=== PATIENT | female | born 1945 | race Caucasian/White ===

== ENCOUNTER 2024-05-07 11:19 | Day surgery (SDC) | payer OTHER, SELFPAY ==
[2024-05-07] VITALS (7 sets, daily range): BP systolic 134–179; BP diastolic 69–114; BMI 35.0
--- NOTE | 2024-05-07 12:41 | ITS.CL.CATH ---
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
Cardiac Catheterization
Procedure Report:
CARDIAC CATHETERIZATION REPORT
Date of Procedure: 05/07/2024
Referring: Alexandr Person MD
Indication: Symptomatic severe aortic stenosis
HEMODYNAMIC DATA
AO: 144/67
LV: 188/20
There is a mean gradient of 42 mmHg across aortic valve
LEFT VENTRICULOGRAPHY: Not performed
CORONARY ANGIOGRAPHY
Dominance: Left
Left Main: Normal
LAD: Mild luminal irregularities
Circumflex: Dominant vessel with mild luminal irregularities
RCA: Nondominant vessel with mild luminal irregularities
Closure Device: None-the procedure was performed via the right radial artery. The Yehuda's test was normal prior to the procedure.
Radiation (mGy): 226
DAP (cm2.Gy): 17.6
Fluoroscopy time: 4.2 minutes
CONCLUSIONS
1: Severe aortic stenosis with mean gradient 42 mmHg
2: No significant CAD
3. Continue workup for TAVR
Copy to: Alexandr Person MD, Jean Claude Alonso DO ([place], [place])
Isrrael Rasmussen MD, [facility], [facility]
--- NOTE | 2024-05-07 15:28 | CONSULT.STRU ---
Consultation
-
Date/Time Consultation Requested: 05/07/2024
Date/Time Consultation Performed:
Requesting Provider: Isrrael Rasmussen
Performing Provider: MARI Bernstein
Reason for Consultation: Aortic Stenosis/ TAVR evaluation
Patient History
Physicians
Family Physician: Jean Claude Alonso
Outpatient Radar Engineering Teacher: Alexandr Person
Primary Radar Engineering Teacher: Alexandr Person
History of Present Illness
Patient is a very pleasant 78yo female referred for evaluation of . She has PAF(C2V: 4) with hx PVI 2020, repeat PVI 2021, multiple DCCV following that), HTN, dyslipidemia and progressive . She notes a clear deterioration over past yr in
exercise capacity with more noticeable MUHAMMAD over the past 6-8weeks.. She has both exertional fatigue and MUHAMMAD. Cannot walk up flight of stairs without significant dyspnea. No hx CAD. Her rhythm has been NSR so these sxs not due to AF. Compliant with
medications including Eliquis. She receives regular dental care.
Reviewed the pathophysiology of aortic stenosis with the patient, her and her daughter.. Explained the treatment options of SAVR and TAVR. Explained the TAVR evaluation process including follow up BMP, CT TAVR scan, CT surgery consult and
Heart Team discussion. Provided with script for BMP next week, script and appointment for CT TAVR, Consult appointment with Dr. Strange and a copy of the TAVR education booklet with contact information. Allowed for and answered questions.
Past Medical History
Past Medical History: Atrial Fib (C2V: 4, Eliquis), MUHAMMAD, GERD, HTN, Hypercholesterolemia, KRISHNA (CPAP), Renal Insufficiency, Valvular Disease (/mild AI/mild to mod. MR/mild TR) and Other (spinal stenosis)
Past Surgical History
Past Surgical History: Other (Cardiac ablation X 2, Cardioversion x 2)
Dental History
Dr. Coreas - regular dental care
Family History
Mother: at Age (96)
Father: at Age (89)
Family Medical History: Other (aortic stenosis)
Social History
Alcohol: Occasional
Drug: None
Tobacco: Non-Smoker
Personal:
Living: With Spouse
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
Allergies
Allergy/AdvReac Type Severity Reaction Status Date / Time
diltiazem [From Cardizem] Allergy Anaphylaxis Verified 05/07/24 12:17
tramadol Allergy Nausea / Verified 05/07/24 12:17
Vomiting
Home Medications
�Medication �Instructions �Recorded �Confirmed �Type
alpha lipoic acid 100 mg capsule 100 mg PO DAILY 05/07/24 05/07/24 History
amiodarone 200 mg tablet 200 mg PO DAILY 05/07/24 05/07/24 History
amlodipine 2.5 mg tablet 2.5 mg PO DAILY 05/07/24 05/07/24 History
apixaban 5 mg tablet 5 mg PO BID 05/07/24 05/07/24 History
ascorbic acid (vitamin C) 500 mg 500 mg PO DAILY 05/07/24 05/07/24 History
capsule,extended release (Vitamin
C)
calcium carb-ergocalciferol (vit 1 tab PO DAILY 05/07/24 05/07/24 History
D2) 600 mg calcium-200 unit tablet
chlorthalidone 25 mg tablet 12.5 mg PO DAILY 05/07/24 05/07/24 History
cholecalciferol (vitamin D3) 25 25 mcg PO DAILY 05/07/24 05/07/24 History
mcg (1,000 unit) tablet
coenzyme Q10 50 mg capsule 50 mg PO DAILY 05/07/24 05/07/24 History
duloxetine 60 mg capsule,delayed 120 mg PO DAILY 05/07/24 05/07/24 History
release
ezetimibe 10 mg tablet 10 mg PO DAILY 05/07/24 05/07/24 History
flaxseed oil 1,000 mg capsule 1,000 mg PO DAILY 05/07/24 05/07/24 History
mecobalamin (vitamin B12) 1,000 500 mcg PO DAILY 05/07/24 05/07/24 History
mcg chewable tablet (B12 Active)
metoprolol succinate 50 mg 50 mg PO BID 05/07/24 05/07/24 History
tablet,extended release 24 hr
multivit with min-folic 1 tab PO DAILY 05/07/24 05/07/24 History
acid-lutein 400 mcg-250 mcg
chewable tablet (Centrum Silver)
olmesartan 40 mg tablet 40 mg PO DAILY 05/07/24 05/07/24 History
omega-3 fatty acids 1,000 mg PO DAILY 05/07/24 05/07/24 History
omeprazole 40 mg capsule,delayed 40 mg PO BID 05/07/24 05/07/24 History
release
oregano oil 1,500 mg capsule 1,500 mg PO DAILY 05/07/24 05/07/24 History
potassium chloride 10 mEq 10 meq PO DAILY 05/07/24 05/07/24 History
capsule,extended release
rosuvastatin 20 mg tablet 20 mg PO QPM 05/07/24 05/07/24 History
turmeric root extract 500 mg 500 mg PO DAILY 05/07/24 05/07/24 History
capsule
vitamins A,C,V-hwvd-xjrwae 2,148 1 tab PO BID 05/07/24 05/07/24 History
mcg-113 mg-45 mg-17.4 mg tablet
(PreserVision AREDS)
STS%
STS %: 4.04%
Review of Systems
-
History Source: Patient
General: Reports Fatigue
HEENT: Reports No Symptoms
Respiratory: Reports MUHAMMAD (over past 6 - 8 weeks has progressed)
Cardiac: Reports Edema (bilateral lower extremities, Left>Right); Denies Chest Pain or Palpitations
Abdomen/GI: Reports Reflux; Denies Abdominal Pain, Nausea or Vomiting
: Reports No Symptoms
Musculoskeletal: Reports Other (spinal stenosis)
Skin: Reports No Symptoms
Neurological: Reports No Symptoms
Vascular: Reports No Symptoms
Physical Exam
Vital Signs
Temp 97.7 F 05/07/24 11:58
Temp route: Oral 05/07/24 11:58
Pulse 60 05/07/24 14:47
Resp Rate 19 05/07/24 14:30
Blood pressure 149/69 05/07/24 14:30
Blood pressure extremity used: Left upper arm 05/07/24 13:10
Position: Lying 05/07/24 13:10
MAP (cuff-Estefani Monitor) 91 05/07/24 14:30
SaO2 94 05/07/24 14:47
Oxygen Mode of Delivery Room air 05/07/24 13:10
Can the patient verbally communicate their pain? Yes 05/07/24 13:10
Actual Weight 83.91 kg 05/07/24 11:58
Body Mass Index (BMI) 35.0 05/07/24 11:58
Labs
04/30/2024:
H/H: 12.8/40.9
WBC: 9.0
Platelets: [id number]
BUN/Creat: 28/1.19
GFR 46
Diagnostic Studies
Echocardiogram 04/15/2024:
CONCLUSIONS
Moderate left atrial enlargement.
Normal right and left ventricular systolic function.
Severe aortic stenosis, mild aortic insufficiency.
moderate elevation in the right ventricular systolic pressure
Indications:
Nonrheumatic aortic (valve) stenosis, Nonrheumatic aortic (valve)
insufficiency, Shortness of breath
Rhythm: Sinus
Portable Study:
Technical Quality: Fair
Contrast: None
BP: 120 / 80
PROCEDURE
A complete Transthoracic Echocardiogram was performed utilizing two-dimensional
evaluation with color flow and spectral Doppler analysis.
FINDINGS
Left Ventricle
Normal size and systolic function estimated ejection fraction 65-70%
Right Ventricle
Normal size and systolic function
Left Atrium
Moderately enlarged
Right Atrium
Normal size
Mitral Valve
Normal mitral valve mild mitral annular calcification mitral regurgitation not
well quantified grossly appears mild to moderate in degree this could
underestimate the degree of mitral regurgitation
Aortic Valve
Aorta valve thickened and restricted consistent with severe aortic stenosis
with a mean gradient of 46 normal his mercury mild aortic insufficiency
Tricuspid Valve
Normal tricuspid valve, mild tricuspid regurgitation moderate elevation right
ventricular systolic pressure at 65 mercury
Pulmonic Valve
Normal pulmonic valve mild pulmonic insufficiency
Pericardium\\Pleura
No pericardial effusion
Aorta
Normal aortic root size
Other Finding
Interatrial septum intact inferior vena cava normal size gradient 50%
respiratory variation
MEASUREMENTS (Male / Female) Normal Values
2D ECHO
LV Diastolic Diameter PLAX 3.8 cm 4.2 - 5.9 / 3.9 - 5.3 cm
LV Systolic Diameter PLAX 2.5 cm
IVS Diastolic Thickness 1.0 cm 0.6 - 1.0 / 0.6 - 0.9 cm
LVPW Diastolic Thickness 1.0 cm 0.6 - 1.0 / 0.6 - 0.9 cm
LV Relative Wall Thickness 0.5
RV Internal Dim ED PLAX 2.9 cm
LVOT Diameter 2.0 cm
M-MODE
Aortic Root Diameter MM 2.6 cm
LA Systolic Diameter MM 5.0 cm
LA Ao Ratio MM 1.9
DOPPLER
AV Peak Velocity 426.2 cm/s
AV Peak Gradient 72.7 mmHg
AV Mean Gradient 45.7 mmHg
AV Velocity Time Integral 100.9 cm
LVOT Peak Velocity 91.5 cm/s
LVOT Peak Gradient 3.3 mmHg
LVOT Velocity Time Integral 24.3 cm
LVOT Stroke Volume 77.4 cm3
LVOT Stroke Volume Index 40.0 ml/m2 empty
LVOT Cardiac Index 2118.5 cm3/min
AV Area Cont Eq vti 0.8 cm2
AV Area Cont Eq pk 0.7 cm2
Mitral E Point Velocity 97.2 cm/s
Mitral A Point Velocity 40.5 cm/s
Mitral E to A Ratio 2.4
TR Peak Velocity 392.6 cm/s
TR Peak Gradient 61.7 mmHg
Right Ventricular Systolic Press 64.7 mmHg
Cardiac Cath 05/07/2024
HEMODYNAMIC DATA
AO: 144/67
LV: 188/20
There is a mean gradient of 42 mmHg across aortic valve
LEFT VENTRICULOGRAPHY: Not performed
CORONARY ANGIOGRAPHY
Dominance: Left
Left Main: Normal
LAD: Mild luminal irregularities
Circumflex: Dominant vessel with mild luminal irregularities
RCA: Nondominant vessel with mild luminal irregularities
Closure Device: None-the procedure was performed via the right radial artery. The Yehuda's test was normal prior to the procedure.
Radiation (mGy): 226
DAP (cm2.Gy): 17.6
Fluoroscopy time: 4.2 minutes
CONCLUSIONS
1: Severe aortic stenosis with mean gradient 42 mmHg
2: No significant CAD
3. Continue workup for TAVR
Exam
General: Well Developed, Well Nourished, No Apparent Distress and Comfortable
HEENT: Normocephalic and Moist Mucous Membranes
Neck: Negative JVD
Respiratory: Clear; Negative Wheezes, Crackles or Rhonchi
Cardiac: S1/S2, Regular Rhythm and Murmur (Grade III/ systolic murmur)
GI: Soft, Non Tender, Non Distended and Normal Bowel Sounds
Rectal: Deferred by Provider
Skin: Warm and Dry
Neuro: AO x 3 and No Motor Deficits
Extremities: Lower Level Edema (+1 Left >Right) and Pulses (+2 DP/PT pulses bilaterally)
Psych: Calm
Assessment / Plan
-
Procedure Type:�Isolated AVR
PERIOPERATIVE OUTCOME ESTIMATE %
Operative Mortality 4.04%
Morbidity & Mortality 11.6%
Stroke 1.25%
Renal Failure 2.16%
Reoperation 2.82%
Prolonged Ventilation 7.91%
Deep Sternal Wound Infection 0.063%
Long Hospital Stay (>14 days) 6.44%
Short Hospital Stay (<6 days)* 26.3%
Severe Aortic stenosis:
��������������� Continue evaluation for TAVR
��������������� BMP 05/14/2024 at [facility]
��������������� CT TAVR scan 05/18/2024 at pending BMP, may need to split
��������������� CT surgery consult with Dr. Strange 05/18/2024
��������������� Heart team discussion at [facility]
Dental Clearance
Paroxysmal Atrial Fibrillation (C2V: 4)
Rate control - medications managed by cardiology
Eliquis - will need to hold prior to TAVR and can result following procedure.
Data Reviewed
-
EKG: Report Reviewed by me
Breakfast Manager: Report Reviewed by me and Discussed with Physician
Echo: Report Reviewed by me
Labs: Labs Reviewed by me
Old Records: Reviewed (Cardiology consult notes, echocardiogram, previous labs from [facility])
Total Time Spent with Patient (in minutes): 35
== END 2024-05-07 16:11 | disposition home or self-care (01) ==
LOC: CATH 11:19
PROVIDERS: ATTENDING PHYSICIAN Internal Medicine Cardiovascular Disease; FAMILY PHYSICIAN Family Medicine; OTHER PHYSICIAN Internal Medicine Cardiovascular Disease
DX: I08.0 Rheumatic disorders of both mitral and aortic valves (principal); R06.02 Shortness of breath; I48.0 Paroxysmal atrial fibrillation; I10 Essential (primary) hypertension; E78.00 Pure hypercholesterolemia, unspecified; K21.9 Gastro-esophageal reflux disease without esophagitis; G47.33 Obstructive sleep apnea (adult) (pediatric); Z79.01 Long term (current) use of anticoagulants
CPT/HCPCS: 93458; C1894; Q9967

== ENCOUNTER → 2024-05-18 10:18 | Outpatient (REF) | payer OTHER, SELFPAY | LOC: RAD 10:18 | PROVIDERS: ATTENDING PHYSICIAN Nurse Practitioner Adult Health; FAMILY PHYSICIAN Family Medicine | DX: I48.91 Unspecified atrial fibrillation (principal); I35.0 Nonrheumatic aortic (valve) stenosis | CPT/HCPCS: 75572; Q9967 ==

== ENCOUNTER → 2024-05-27 09:22 | Outpatient (REF) | payer OTHER, SELFPAY | LOC: RAD 09:22 | PROVIDERS: ATTENDING PHYSICIAN Nurse Practitioner Adult Health; FAMILY PHYSICIAN Family Medicine | DX: I35.0 Nonrheumatic aortic (valve) stenosis (principal) | CPT/HCPCS: 74174; Q9967 ==

== ENCOUNTER 2024-06-17 07:29 | Inpatient (IN) | payer OTHER, SELFPAY ==
[2024-06-10 12:01] VITALS: BMI 35.1
[2024-06-10 12:28] LABS: % Basophils 0.5 % (0-2); % Eosinophils 0.5 % (0-6); % Immature Granulocytes 0.2 % (0-0.5); % Lymphocytes 19.6 % (20.5-51.1); % Monocytes 6.3 % (1.7-9.3); % Neutrophils 72.9 % (42.2-75.2); Absolute Lymphocytes 1.3 10^3/uL (1.2-3.4); Absolute Monocytes 0.4 10^3/uL (0.1-0.6); Absolute Neutrophils 4.7 10^3/uL (1.4-6.5); Hematocrit 34.9 % (37.0-47.0); Hemoglobin 12.1 g/dL (12.0-16.0); Mean Corp Hgb Conc. 34.7 g/dL (33.0-37.0); Mean Corpuscular Hgb 31.5 pg (27.0-31.0); Mean Corpuscular Volume 90.9 fL (81.0-99.0); Mean Platelet Volume 10.8 fL (7.4-10.4); Nucleated Red Blood Cells % 0 %; Platelet Count 192 10^3/uL (130-400); Red Blood Cell Count 3.84 10^6/uL (4.20-5.40); Red Cell Dist. Width 14.4 % (11.5-14.5); White Blood Cell Count 6.5 10^3/uL (4.8-10.8)
[2024-06-10 12:31] LABS: PT 17.2 Sec (11.4-14.6)
[2024-06-10 12:32] LABS: APTT 38.2 Sec (23.4-35.0)
[2024-06-10 12:41] LABS: NT-proBNP 608 pg/ml
[2024-06-10 12:54] LABS: ALT (SGPT) 29 U/L (0-35); AST (SGOT) 36 U/L (14-36); Albumin 4.5 g/dl (3.5-5.0); Alkaline Phosphatase 89 U/L (38-126); Blood Urea Nitrogen 24 mg/dl (7-17); Carbon Dioxide 22 mmol/L (22-30); Chloride 104 mmol/L (98-107); Direct Bilirubin 0.2 mg/dl (0.0-0.4); Estimated Creatinine Clearance 44 ml/min; Glucose 93 mg/dl (70-99); Potassium 3.9 mmol/L (3.5-5.1); Sodium 137 mmol/L (135-145); Total Bilirubin 0.9 mg/dl (0.2-1.3); Total Protein 6.9 g/dl (6.3-8.2)
[2024-06-10 13:34] LABS: Urine Albumin Negative (Neg - Trace); Urine Bilirubin Negative (Negative); Urine Character Clear (Clear); Urine Color Yellow; Urine Glucose Negative (Negative); Urine Ketone Negative (Negative); Urine Leukocyte Negative (Negative); Urine Nitrite Negative (Negative); Urine Occult Blood Negative (Negative); Urine Urobilinogen Negative (Neg - 1+)
[2024-06-10 14:36] LABS: Glycohemoglobin (HgbA1c) 5.3 % (4.0-5.6)
--- NOTE | 2024-06-10 16:26 | CM ---
spoke to pt in PAT's, we discussed preop teaching for TAVR. she is prev indep, lives with her husb in a 2 story home with 12 steps to enter. she has a walkr she uses if needed. she has the TAVR educ book, soap and instructions. her husb will be home
and is very supportive. plan is for TAVR 06/17, cm role explained and all questions answered.
[2024-06-17] VITALS (24 sets, daily range): BP systolic 84–188; BP diastolic 45–92; PULSE 42; BMI 34.5
--- NOTE | 2024-06-17 09:23 | CM ---
Addendum entered by PRETTY Garcia 06/17/24 09:24:
Correction to below:
CT Transitional Care RN is not available due to geographical area.
Original Note:
Patient in OR today for planned TAVR.
Reviewed initial assessment. Pt. resides w/ spouse in a private, 2 story home w/ 12 JUDY.
Functionally, patient is indep. w/ use of a RW.
Anticipated DC plan is for home w/ CT Transitional Care RN.
CM to follow.
[2024-06-17] MEDS: ANCEF 10 IV ×2 (10:35)
[2024-06-17 11:23] LABS: ACT-LR - POC 360 Seconds (116-155)
--- NOTE | 2024-06-17 11:49 | W.CVOR.SURPR ---
CVOR Surgeon Immed Pre Op
-
I have examined this patient prior to performance of the scheduled procedure.
The patient's condition is unchanged from the time of the dictated/written History and
Physical and the patient is able to undergo the scheduled procedure.
--- NOTE | 2024-06-17 11:49 | W.IMMPOSTOP ---
Surgical Immed Post Op Note
-
[id number]
STRUCTURAL HEART PROCEDURE NOTE: TAVR
Preoperative Dx:
Severe aortic stenosis (P/M: 72.7/45.7, JOSEPH 0.8, Pv 4.26)
Mitral regurgitation (gnqm-en-pctiuols)
AF
Bradycardia
HTN/HLD
GERD
KRISHNA - CPAP
Spinal stenosis
YUR[place] - hearing aids
Macular degeneration
Anxiety/depression
Postoperative Dx:
Same
Acute on chronic, combined systolic/diastolic congestive heart failure w/ elevated LVEDP 35mmHg
Procedures:
1) R GLOBAL POSITION SYSTEM TECHNICIAN access w/ tactile, U/S, fluoroscopic guidance, micropuncture technique, limited angiography, 8Fr dilator placement
2) Perclose placement x 2 into R GLOBAL POSITION SYSTEM TECHNICIAN, 8Fr sheath placement
3) L CFV access w/ U/S and fluoroscopic guidance, micropuncture technique, long 6Fr sheath placement
4) L GLOBAL POSITION SYSTEM TECHNICIAN access w/ tactile, U/S, fluoroscopic guidance, micropuncture technique, limited angiography, 6Fr sheath placement
5) Placement of pigtail catheter in NCC w/ limited aortography & confirmation of cusp-overlap view
6) Placement of temporary RV pacing wire w/ threshold testing
7) Placement of 14Fr COOK sheath into R GLOBAL POSITION SYSTEM TECHNICIAN
8) Wire purchase across stenotic AV (AL-1, soft-tip straight, table J-wire, pigtail catheter, LVEDP assessment [step 9], shannan)
9) Visual inspection of TAVR valve
10) R TF TAVR w/ placement of 26mm EVOLUT Fx, 1 partial recapture
11) Completion TTE (no AI/PVL, mean gradient 14mmHg)
12) Removal of phucg-egiaocop-rrkkmf w/ R GLOBAL POSITION SYSTEM TECHNICIAN mgmt w/ perclose sutures x 2; manual pressure
13) Completion R ileofemoral angiography
14) Removal of L GLOBAL POSITION SYSTEM TECHNICIAN sheath w/ mgmt w/ 6Fr angioseal; manual pressure
15) Removal of temporary pacing wire; L CFV sheath w/ manual pressure
Accounts Payable Accountant:
Dr. Xavier Kang
Cardiac Surgeon:
Dr. Anderson Strange
Implants:
Perclose x 2
6Fr angioseal x 1
Evolut Fx 26mm [id number]
Cath Data:
Start: 1052hrs, Deploy: 1126hrs, End: 1139hrs
FT: 9.5min, mGy: 512.90, DAP: 56.8339, Contrast: 77mL
Post-TTE: No AI/PVL, mean gradient 14mmHg
Complications:
None
Condition:
Stable/guarded to recovery
--- NOTE | 2024-06-17 12:04 | ITS.CL.TAVR ---
Astronomy Teacher - TAVR Report
TAVR PRocedure
Procedure Report:
TRANSCATHETER AORTIC VALVE REPLACEMENT REPORT
Date: 06/17/2024
Referring physician: Alexandr Person M.D.
Preop diagnosis: Severe aortic valve stenosis.
Postop diagnosis: Severe aortic valve stenosis, acute on chronic congestive heart failure.
Procedure: Transcatheter aortic valve replacement (TAVR) using a #26 Medtronic CoreValve Evolut Pro.
Operators: Xavier Kang DO, Anderson Strange M.D.
Findings: Severely calcified and stenotic aortic valve.
Anesthesia: Concious sedation was provided by the anesthesia staff.
Estimated blood loss: Negligable.
Complications: None.
Condition: Stable
Procedure:
The patient was brought to the cardiac cath lab manager after consent and was prepped and draped in standard sterile fashion. Conscious sedation was provided by the anesthesia staff. After a 'Time Out,' bilateral common femoral arteries and the left
common vein were access using a modified Seldinger technique with a micropuncture kit under ultrasound guidance. A 6 Syrian sheath was placed in the left femoral vein. Angiography performed through the micropuncture sheath confirmed satisfactory
arterial placement in the right and left common femoral arteries. The micropuncture sheath was replaced with a 6Fr sheath in the left common femoral artery. In the right common femoral artery, the micropuncture sheath was removed and an 8 Syrian
dilator was advanced over the wire. The dilator was removed and the right common femoral artery was preclosed with 2 Perc-Close devices. An 8 Syrian sheath was placed in the right common femoral artery. A temporary pacing wire was advanced through
the left femoral vein and into the right ventricle. The pacemaker demonstrated good capture and was set to back up. A 5Fr pigtail catheter was advanced through the left femoral sheath and seated in the non-coronary cusp. The valve overlap (LAKHANI 3,
CAU 17) and three cusp co-planar (STATELESS 17, CAU 21) angles were confirmed on aortography.
An AL-1 catheter was advanced through the 8Fr sheath, the J wire was exchanged for a Lunderquist wire and the catheter and the 8 Fr sheath was removed. A 14 Fr Cook sheath was placed. The CoreValve was prepared on the back table and then inspected
under fluoroscopy. Infolding of the valve was no higher than the 4th node. The AL-1 catheter was advanced over the Lunderquist wire, which was then removed. The catheter was flushed and a straight wire was advanced through the AL-1 catheter. The
straight wire was used to cross the valve, and the AL-1 catheter was prolapsed into the left ventricle. The straight wire was exchanged for an exchange length J-wire and the AL-1 catheter was subsequently exchanged for a 5 Fr pigtail catheter. The
double curve Lunderquist wire was advanced through the pigtail catheter and placed in the apex of the left ventricle. The pigtail catheter was removed.
The Cook sheath was removed and the in-line sheath was advanced over the Lunderquist wire through the RCFA into the descending aorta. The CoreValve was then advanced over the aortic arch and into the left ventricle. In the cusp overlap view, the
valve was slowly deployed to the point of flowering. The patient was rapidly paced in a de-escalating rate (from 140 bpm to 80 bpm) as the valve was deployed through the rumble strips to 80%. Our first appointment appeared to have restricted valve
expansion versus possible valve infolding. The valve was recaptured and redeployed in a more favorable position. Injection confirmed a non-coronary cusp implant depth of 3 mm. The image intensifier was taken to the 3 cusp overlap view to remove
paralax. Injection in this view confirmed left coronary cusp implant depth of 3 mm. The decision was made to proceed with full deployment. The delivery handle with slowly rotated counter clockwise until both paddles were released from the
superior aspect of the valve. The Lunderquist wire was partially withdrawn to lift the nosecone of the valve delivery device. The delivery device was withdrawn to the descending aorta and re-assembled. Transthoracic echocardiogram showed no
paravalvular insufficiency. Mean gradient across the valve was 14 mmHg by echo.
The inline sheath was removed over the Lunderquist wire and hemostasis was achieved using the two Perc-Close devices. Lower extremity angiography showed excellent hemostasis and good runoff without evidence perforation or extravasation. The
pigtail catheter was removed over a J-wire and the left CUSTODIAL ENGINEER was closed using a 6-Fr Angioseal. There was no evidence of consistent pacing requirement. The temporary pacer was removed. The venous sheath was removed. Manual pressure was applied
with good hemostasis of the left venous access. The patient was taken to recovery in good condition.
Implant Depth
Non-Coronary (mm): 3
Left Coronary (mm): 3
Radiation
Dose (mGy): 512.90
DAP (cm2.Gy): 56.8339
Fluoroscopy time (minutes): 9.5
TAVR Echo Gradient (mmHg): 14
LV (s/x, mmHg): 157/35
TAVR Cath Gradient (mmHg): Not obtained.
Conclusions:
1. Successful placement of #26 CoreValve Evolute Pro using a left percutaneous transfemoral approach with no acute complications.
2. Acute on chronic heart failure with elevated filling pressures (LVEDP = 35 at 83.9 kg).
Xavier Kang, DO, FACC, FACP
Copy: Anderson Strange M.D., Alexandr Person M.D., Jean Claude Alonso, D.O.
[2024-06-17] MEDS: LEVOPHED 250 IV (12:08)
--- NOTE | 2024-06-17 12:16 | W.PN.UPDATE ---
Update Note
Progress Note Update
Reviewed Ms. Mueller with the heart team in the preTAVR SDM and confirmed a 26 mm Evolut via right transfemoral access. She will resume Eliquis post TAVR. LVEDP 35mmHg. # 26 mm Evolut (serial# [id number]) successfully deployed via right Transfemoral
access. Post implant MG 14mmHg.
[2024-06-17] MEDS: LASIX 20 MG IV (12:33)
--- NOTE | 2024-06-17 14:15 | PTCARENOTE ---
Rec'd Pt 1338, post TAVR recovery, A,A+Ox3, denies pain, bilat femoral dsgs D+I. SB 40's BP 124/60. O2 sat 96%. RR 16.
[2024-06-17] MEDS: THERAGRAN 1 TABLET PO (16:42)
[2024-06-17] MEDS: CRESTOR 20 MG PO (17:09)
[2024-06-17] MEDS: ANCEF 5 IV (17:10)
--- NOTE | 2024-06-17 19:19 | PTCARENOTE ---
Pt. received from previous shift. Pt. seen in room, sitting up in chair with no complaints at this time. BP WNL. Tele reading sinus jasbir in the 40s-50s. Continuing to monitor the pt at this time.
[2024-06-17] MEDS: PROTONIX 40 MG PO (19:35)
[2024-06-17] MEDS: COLACE 100 MG PO (22:41)
[2024-06-18] VITALS (7 sets, daily range): BP systolic 118–151; BP diastolic 66–100; PULSE 56; O2SAT 94–96; BMI 34.5
--- NOTE | 2024-06-18 01:44 | PTCARENOTE ---
Frequent b/l groin site checks throughout the night, b/l groin sites soft and clean, dry and intact. Tele reading NSR with HR 50s-60s. No complaints at this time. Continuing to monitor the patient.
--- NOTE | 2024-06-18 02:19 | PTCARENOTE ---
RN noticed tele monitor HR in the 50s and then increasing to the 100s-110 and then decreasing back to the 50s. Tele strips printed and placed in pt. chart. CT Surgery PA notified. Pt. with no complaints at this time. B/L groin sites soft and c/d/i.
Continuing to monitor pt at this time.
[2024-06-18] MEDS: TYLENOL 650 MG PO ×2 (02:58→08:40)
--- NOTE | 2024-06-18 03:20 | W.PN.CT ---
Addendum entered and electronically signed by Anderson Strange MD 06/18/24 13:56:
I saw and examined the patient.
The PA's note was reviewed and I agree with the note.
Comment:
Postop day #1 status post right transfemoral TAVR with placement of 26 mm Evolut Fx valve
And out of atrial fibrillation without any significant conversion pauses or significant bradycardia. Heart rate in mid 50s at baseline.
Received diuresis for elevated LVEDP, amiodarone held for prolonged QT
Echocardiogram with hyperdynamic left ventricular function with LVEF of 70 to 75%. She has moderate but regurgitation. She has slightly elevated peak/mean aortic valve gradients at 47/25 mmHg without any identified AI/PVL she has mild to moderate
tricuspid regurgitation with severely elevated PASP with an estimated pulmonary toe pressure of 63 mmHg. Her TAVR gradients intra procedurally were 30/16 mmHg respectively
Outpatient rhythm monitoring
Discharge planning if okay with my cardiology colleagues
Original Note:
Today's Communication / Plan
-
-pod#1
-in and out of a-fib low 100s overnight (tachy/jasbir). No conversion pauses or significant bradycardia (mid 50s).Hr was 47 on preop ECG, takes 50 mg bid Toprol at home-->gave lower dose of Toprol 25 mg this am for tachy/htn
-LVEDP 35- diuresed with 20 iv Lasix (UO 800)
-long Qt >500 - held Amio
-labs pending
-R groin is a little tender with touch only, but appears soft, stable, without palpable hematoma or mass
-Echo today
-current meds (Crestor, Benicar, Zetia, Chlorthalidone, Norvasc, Eliquis). Toprol and Amio held postop d/t bradycardia
-encourage IS, OOB
Assessment / Plan
-
- Severe symptomatic - s/p R TF TAVR w/ placement of 26mm EVOLUT Fx, 1 partial recapture on 06/17/24, pod #1
- Acute on chronic, combined systolic/diastolic congestive heart failure w/ elevated LVEDP 35mmHg- diuresed with 20 iv Lasix (UO 800)
- Post-TTE: No AI/PVL, mean gradient 14mmHg
- Mitral regurgitation ([id number])
- Paroxysmal a-fib - on Amio, Toprol, and Eliquis at home
- Bradycardia
- HTN/HLD
- Class 1 obesity, BMI 34
- GERD
- KRISHNA - CPAP
- Spinal stenosis with chronic back pain
- BUCKLAND - hearing aids
- Macular degeneration
- Anxiety/depression
- Long Qt
Discussed patient care with: Nursing and Care Team
Subjective
Procedure
- s/p R TF TAVR w/ placement of 26mm EVOLUT Fx, 1 partial recapture on 06/17/24
-
Date of Service: June 18, 2024
Objective Data
-
PT 17.2 Sec (11.4-14.6) H 06/10/24 11:59
INR 1.40 06/10/24 11:59
APTT 38.2 Sec (23.4-35.0) H 06/10/24 11:59
Vital Signs
Vital Signs
Temp Pulse Resp BP Pulse Ox
98.7 F 58 18 151/67 96
06/18/24 02:59 06/18/24 02:45 06/18/24 02:59 06/18/24 02:30 06/17/24 23:03
CT Intake/Output/Weight
06/17/24 06/17/24 06/18/24
06:59 18:59 06:59
Intake Total 1400 / 1400
Output Total 800 / 800
Balance 600 / 600
SaO2: 96
Physical Exam
-
General: Awake and AOx3
Cardiovascular: Regular rate & rhythm and Murmur (1/6systolic @ lsb)
Respiratory: Clear and Decreased Breath Sounds
Incision: Other (groins are cdi, soft, no hematoma b/l. R groin slightly tender to touch - soft, without any palpable mass or hematoma)
Extremities: Edema +1 (chronic b/l edema, L>R per pt (had R TKR). 2+ DPs b/l)
Data Reviewed
-
Lab Results: Results Reviewed
Medications: Active Meds Reviewed
Chest X-Ray: Report Reviewed and Image Reviewed
ECG: Report Reviewed and Image Reviewed
[2024-06-18 03:46] LABS: Hemoglobin 12.2 g/dL (12.0-16.0); Mean Corp Hgb Conc. 34.9 g/dL (33.0-37.0); Mean Corpuscular Hgb 31.5 pg (27.0-31.0); Mean Corpuscular Volume 90.4 fL (81.0-99.0); Mean Platelet Volume 11.3 fL (7.4-10.4); Platelet Count 149 10^3/uL (130-400); Red Blood Cell Count 3.87 10^6/uL (4.20-5.40); Red Cell Dist. Width 14.4 % (11.5-14.5); White Blood Cell Count 9.6 10^3/uL (4.8-10.8)
[2024-06-18 03:54] LABS: Blood Urea Nitrogen 20 mg/dl (7-17); Calcium 9.7 mg/dl (8.4-10.2); Carbon Dioxide 26 mmol/L (22-30); Chloride 104 mmol/L (98-107); Estimated Creatinine Clearance 44 ml/min; Glucose 102 mg/dl (70-99); Potassium 3.6 mmol/L (3.5-5.1); Sodium 142 mmol/L (135-145)
[2024-06-18] MEDS: TOPROL XL 25 MG PO (04:55)
--- NOTE | 2024-06-18 04:59 | PTCARENOTE ---
Pt's HR in the 120s-130s. Tele reading AFib. BP taken 132/100. CT Surg PA notified, placed order for 25mg Metoprolol now. Med given. Continuing to monitor HR and patient.
--- NOTE | 2024-06-18 07:26 | W.PN.ANS.POP ---
Anesthesia Post Operative
- Anesthesia Post Op Note
Vital Signs Stable-See Nursing Note: Yes
Airway Patent: Yes
Adequate Pain Control: Yes (slight discomfort in the R groin, able to ambulate)
Change in Mental Status: No
Current Postoperative Nausea & Vomiting: No
Anesthesia Complications: No
General Anesthetic Recall: No
Unplanned Admission: No
Post Op Hydration Adequate: Yes
[2024-06-18] MEDS: KCL 40 MEQ PO (08:39)
[2024-06-18] MEDS: CYMBALTA DELAYED RELEASE 60 MG PO (08:39)
[2024-06-18] MEDS: PROTONIX 40 MG PO (08:39)
[2024-06-18] MEDS: THERAGRAN 1 TABLET PO (08:39)
[2024-06-18] MEDS: OCUVITE SOFTGEL 1 CAP PO (08:39)
[2024-06-18] MEDS: VITAMIN C 500 MG PO (08:39)
[2024-06-18] MEDS: BENICAR 40 MG PO (08:39)
[2024-06-18] MEDS: Hygroton 12.5 MG PO (08:39)
[2024-06-18] MEDS: ELIQUIS 5 MG PO (08:40)
[2024-06-18] MEDS: OSCAL 500 + D 500 MG PO (08:40)
[2024-06-18] MEDS: PACERONE 200 MG PO (08:40)
--- NOTE | 2024-06-18 08:45 | PTCARENOTE ---
pt received from previous RN, oriented, in bed. SB on the monitor, HR 50s. PROFILE SHAPER OPERATOR Dyan aware of PAF overnight. +1 ankle edema. pt denies n/v, +BS. c/o constipation, received PRN Colace. b/l groins c/d/i, no s/s of bleeding or hematoma. pt c/o R
groin tenderness, PROFILE SHAPER OPERATOR aware. PRN Tylenol given. PIV. see worklist for VS, I&O, and assessment.
[2024-06-18] MEDS: COLACE 100 MG PO (09:05)
[2024-06-18] MEDS: NORVASC 2.5 MG PO (09:06)
--- NOTE | 2024-06-18 09:48 | W.PN.CD ---
Today's Communication / Plan
-
Resume metoprolol.
Resume amiodarone.
Post procedure TTE pending.
RhythmStar
Discharge planning.
Impression / Plan
-
Impression/Plan: 79 y/o female with hypertension, hyperlipidemia, paroxysmal atrial fibrillation and sinus bradycardia and severe aortic valve stenosis admitted for elective TAVR.
#Severe aortic valve stenosis
-Chronic, progressive.
-S/P#26 Medtronic CoreVale via right common femoral approach (06/17/2024).
-Bilateral femoral access sites are C/D/I.
-EKG/Telemetry shows recurrence of atrial fibrillation and sinus jasbir.
-Antithrombotic therapy with apixaban 5 mg BID
-Post procedure TTE pending.
#Acute on Chronic HFpEF
-LVEDP = 35 mmHg during TAVR.
-Furosemide 20 mg given yesterday.
-GDMT as hemodynamics will tolerate.
-The patient may benefit from SGLT2i as an outpatient.
#HTN
-Chronic, stable.
-Resume home medications.
#HLD
-Chronic, stable.
-Resume rosuvastatin and ezetimibe.
#PAF
-Currently in AF with borderline controlled ventricular response (100) and sinus jasbir.
-Rate control with metoprolol and amiodarone. Unfortunately, these were held due to sinus jasbir and long QTc.
-CHADS2-Vasc = 5 (CHF, HTN, Age x2, Female).
-Therapeutic anticoagulation with apixaban 5 mg BID.
-Restart metoprolol as her sinus jasbir is not a new finding.
-Restart amiodarone. While amiodarone can increase QTc (as a type III antiarrhythmic), this is NOT associated with an increased risk of TdP.
-We will order a RhythmStar to better assess her AF/SB burden and adjust medications as needed.
#Dispo
-IVU status.
-Full code.
-Discharge planning.
Subjective/Interval History:
Overnight, the patient lapsed into AF with borderline control.
Metoprolol and amiodarone were held due to some bradycardia and prolonged QTc.
Currently back in NSR/Sinus jasbir.
DATA:
TAVR, 06/17/2024:
Conclusions:
1. Successful placement of #26 CoreValve Evolute Pro using a left percutaneous transfemoral approach with no acute complications.
2. Acute on chronic heart failure with elevated filling pressures (LVEDP = 35 at 83.9 kg).
Physical Exam
Vital Signs/Labs
Vital Signs
Temp Pulse Resp BP Pulse Ox
37.1 C 58 18 150/66 98
06/18/24 07:07 06/18/24 09:15 06/18/24 07:07 06/18/24 08:39 06/18/24 07:07
06/16/24 06/17/24 06/18/24
11:59 11:59 11:59
Actual Weight 84.141 kg 84.2 kg
06/18/24 02:52
06/18/24 02:52
PT 17.2 Sec (11.4-14.6) H 06/10/24 11:59
INR 1.40 06/10/24 11:59
APTT 38.2 Sec (23.4-35.0) H 06/10/24 11:59
06/10/24
11:59
Zih-Y-Ermsvzswpam Pept 608
Physical Exam
Constitutional: No acute distress and Comfortable
EENT: Anicteric and Moist mucous membranes
Cardiovascular: Rhythm & rate is regular, Pedal edema is absent, JVD pressure is normal, S1S2 is normal and Murmur/rub/gallop absent
Respiratory: Respiratory effort normal, Lungs clear to auscul., Wheeze Absent, Crackles Absent and Rhonchi Absent
GI: Soft, Distention absent, Flat, Non tender and Normal bowel sounds
Neuro/Psych: AO x 3
Other: Cath Site (Bilateral femoral access sites are C/D/I.)
Data Reviewed
-
Date of Service: June 18, 2024
Medical Decision Making: Reviewed Test Results, Independent Historian Assessment and Test Interpretation
EKG: Tracing Personally Visualized and interpreted and Report Reviewed by me
Echo: Tracing Personally Visualized and interpreted and Report Reviewed by me
X-Ray/CT/US/MRI/NUC/PET: Image Personally Visualized and interpreted and Report Reviewed by me
Medical Tests (PFT, Pathology etc): Image Personally Visualized and interpreted and Report Reviewed by me
Labs: Labs Reviewed by me
Old Records: Reviewed
--- NOTE | 2024-06-18 11:33 | W.DCSUMMARY ---
Discharge Summary
Discharge Data
Date of Admission: 06/17/24
Date of Discharge: 06/18/24
-
Pending Results: No
Hospital Course
Primary care physician: Jean Claude Alonso
Outpatient veneer lathe operator: Alexandr Person
Inpatient consultants: [facility]
Procedures:
1. TAVR
Primary Diagnosis:
1. Severe aortic stenosis
Secondary Diagnoses:
1. Acute on chronic, combined systolic/diastolic congestive heart failure with elevated left ventricular end diastolic pressure 35mmHg.
2. Mitral regurgitation ([id number]).
3. History of atrial fibrillation on Eliquis
4. Bradycardia
5. Hypertension
6. Hyperlipidemia
7. GERD
8. Obstructive sleep apnea - CPAP
9. Spinal stenosis
10. CRAIG - hearing aids
11. Macular degeneration
12. Anxiety/depression
13. Urinary frequency/incontinence
HPI: 79-year-old female was electively admitted on 06/17/2024 for elective TAVR due to severe aortic stenosis
Hospital course: Patient underwent right Trans-femoral TAVR #26mm EVOLUT Fx by Dr. Anderson Strange. Patient returned to PACU on Levophed which was quickly discontinued. Bilateral groin incisions were intact without bleeding. Patient received
Lasix 20 mg IV for an LVEDP of 35. Patient was noted to be bradycardic with rates in the 40s and beta-armando/amiodarone were held. Patient had intermittent atrial fibrillation with rate to the 100's without conversion pauses. On postoperative
day #1, amiodarone and beta-armando were resumed as prolonged QQc (522ms) is NOT associated with an increased risk of Torsades. A predischarge TTE on 06/18/2024 reported an EF of 70 to 75% with moderate mitral regurgitation. AV gradients were
47/25 mmHg (from 30/16mmHg post procedure) and no AI. There was mild to moderate TR. A prescription for Lasix 20 mg p.o. daily x 10 days was ordered. Patient will follow-up with Dr. Person in 30 days for follow-up echocardiogram. A Rhythm Star
monitor was ordered due to history of atrial fibrillation and current bradycardia. Echo findings were reviewed with Dr. Strange and patient is deemed stable for discharge to home.
Home medication changes:
Pantoprozole in place of omeprazole (on Eliquis, Crestor, Zetia)
Discharge Plan
-
Patient Disposition: Home (Routine Discharge)
Discharge Diagnosis/Procedures: TF TAVR
Condition: Good
Diet: Low Fat, Low Cholesterol and 2 Gram Sodium
Activity: As tolerated
Driving Restrictions: No driving for 1 week
Bathing Restrictions: OK to Shower
Others Tests: 30-day follow up echocardiogram: 07/20/2024 @ 12:[address] Person's office
Other Services: Cardiac Rehab
Wound Care: No lotions, powders or creams to puncture sites.
Specialty Instructions: Weigh Daily- Call MD for wt gain/loss 3 lbs overnight/5 lbs in 1 week
Referrals:
[facility] Visiting Nurse [Outside]
Jean Claude Alonso, [Family Provider] - in four to six weeks (Please make an appointment in four to six weeks. )
Eldaio Young MD [Active] - 07/26/24 3:40 pm
Prescriptions:
New
pantoprazole 40 mg Tablet,Delayed Release (/Ec)
40 mg PO BID Qty: 30 0RF
furosemide [Lasix] 20 mg tablet
20 mg PO DAILY Qty: 20 0RF
Continued
potassium chloride 10 mEq Capsule, Extended Release
10 meq PO DAILY
amiodarone 200 mg Tablet
200 mg PO DAILY
metoprolol succinate 50 mg Tablet Extended Release 24 Hr
50 mg PO BID
amlodipine 2.5 mg Tablet
2.5 mg PO DAILY
chlorthalidone 25 mg Tablet
12.5 mg PO DAILY
coenzyme Q10 50 mg Capsule
50 mg PO DAILY
flaxseed oil 1,000 mg Capsule
1,000 mg PO Q48H
Patient Comments:
ascorbic acid (vitamin C) [Vitamin C] 500 mg Capsule, Extended Release
500 mg PO DAILY
calcium carbonate-vitamin D2 600 mg calcium- 200 unit Tablet
1 tab PO DAILY
olmesartan 40 mg Tablet
40 mg PO DAILY
ezetimibe 10 mg Tablet
10 mg PO NOON
rosuvastatin 20 mg Tablet
20 mg PO QPM
duloxetine 60 mg Capsule,Delayed Release(Dr/Ec)
60 mg PO DAILY
cholecalciferol (vitamin D3) 25 mcg (1,000 unit) Tablet
25 mcg PO HS
alpha lipoic acid 100 mg Capsule
100 mg PO DAILY
oregano oil 1,500 mg Capsule
1,500 mg PO NOON
PreserVision AREDS 2,148 mcg-113 mg-45 mg-17.4mg Tablet
1 tab PO BID
turmeric root extract 500 mg Capsule
500 mg PO NOON
Centrum Silver 400-250 mcg Tablet,Chewable
1 tab PO BID
apixaban 5 mg Tablet
5 mg PO Q12H
mecobalamin (vitamin B12) [B12 Active] 1,000 mcg Tablet,Chewable
500 mcg PO NOON
omega 4-fgi-xoh-fish oil [Fish Oil] 1,000 mg (120 mg-180 mg) Capsule
1 cap PO Q48H
Discontinued
omeprazole 40 mg Capsule,Delayed Release(Dr/Ec)
40 mg PO BID
Discharge Orders:
Discharge Patient (As Directed); Ordered 06/18/24
Ordered By: Dyan Rokc
Care Plan Goals
Care Plan Goals:
Problem: Readiness for enhanced knowledge related to diagnosis and treatment plan
Goal: Understand your diagnosis and treatment plan needs, including medications if applicable.
Instructions: Know your diagnosis, underlying causes and treatment plan options, including medications if applicable. Consult with your health care team to learn about your diagnosis and treatment plan, including medications if applicable.
Discharge Date and Time
Print Language: LUXEMBOURGISH
--- NOTE | 2024-06-18 11:43 | CM ---
Reviewed chart. Met with and Mrs. Mueller to review discharge plans. She states she is feeling okay and maybe able to go home soon. She states prior to admission she resides with her spouse in a two story home with a basement. She states she
has twelve steps to get to the main level once inside the home. She states she then has twelve steps to get to bedroom/full bathroom. She states prior to admission she ambulates in the house without any device but uses a walker in the community.
She states she has a walker at home. She states she has a prescription plan. We reviewed VNA Services and she is agreeable to VNA with [facility]. Medical work-up in progress. The discharge plan is to return home with her spouse and [facility] when medically stable.
[2024-06-18] MEDS: ZETIA 10 MG PO (12:32)
[2024-06-18] MEDS: LASIX 40 MG PO (12:32)
--- NOTE | 2024-06-18 13:35 | PTCARENOTE ---
pt discharged home w/ family. discharge instructions reviewed w/ patient, questions answered. home meds reviewed. b/l groin dressings removed, sites TIANA, no s/s of bleeding or hematoma. IV and tele dc'd. Rhythm star monitor applied. pt dressed self.
== END 2024-06-18 14:16 | disposition home health service (06) | DRG 266 ==
LOC: IVU 07:29
PROVIDERS: Physician Assistant Medical; ADMITTING PHYSICIAN Thoracic Surgery (Cardiothoracic Vascular Surgery); CONSULT PHYSICIAN Internal Medicine Cardiovascular Disease; FAMILY PHYSICIAN Family Medicine
PROC: 02RF38Z Replacement of Aortic Valve with Zooplastic Tissue, Percutaneous Approach (ICD-10-PCS; 2024-06-17)
DX: I08.0 Rheumatic disorders of both mitral and aortic valves (principal); I50.43 Acute on chronic combined systolic (congestive) and diastolic (congestive) heart failure; I48.91 Unspecified atrial fibrillation; R00.1 Bradycardia, unspecified; I11.0 Hypertensive heart disease with heart failure; E78.5 Hyperlipidemia, unspecified; G47.33 Obstructive sleep apnea (adult) (pediatric); M48.00 Spinal stenosis, site unspecified; K21.9 Gastro-esophageal reflux disease without esophagitis; H35.30 Unspecified macular degeneration; H91.93 Unspecified hearing loss, bilateral; F32.A Depression, unspecified; F41.9 Anxiety disorder, unspecified; R35.0 Frequency of micturition; R32 Unspecified urinary incontinence; I48.0 Paroxysmal atrial fibrillation; E66.9 Obesity, unspecified; G89.29 Other chronic pain; Z68.34 Body mass index [BMI] 34.0-34.9, adult; Z79.01 Long term (current) use of anticoagulants; Z79.899 Other long term (current) drug therapy
CPT/HCPCS: 93308; 33361; 36415; 71045; 71046; 80048; 80053; 81003; 82248; 83036; 83880; 85025; 85027; 85347; 85610; 85730; 86850; 86900; 86901; 87070; 93005; 93306; 93321; 93325; C1760; C1769; C1894; Q9967

== ENCOUNTER → 2024-12-03 09:01 | Outpatient (REF) | payer OTHER, SELFPAY | LOC: RAD 09:01 | PROVIDERS: ATTENDING PHYSICIAN Student in an Organized Health Care Education/Training Program; FAMILY PHYSICIAN Family Medicine | DX: I35.0 Nonrheumatic aortic (valve) stenosis (principal) | CPT/HCPCS: 75572; Q9967 ==

== ENCOUNTER 2024-12-30 05:38 | Inpatient (IN) | payer OTHER, SELFPAY ==
[2024-12-22 13:03] LABS: % Basophils 0.3 % (0-2); % Eosinophils 0.4 % (0-6); % Immature Granulocytes 0.4 % (0-0.5); % Lymphocytes 14.6 % (20.5-51.1); % Monocytes 6.9 % (1.7-9.3); % Neutrophils 77.4 % (42.2-75.2); Absolute Lymphocytes 1.1 10^3/uL (1.2-3.4); Absolute Monocytes 0.5 10^3/uL (0.1-0.6); Absolute Neutrophils 5.6 10^3/uL (1.4-6.5); Hematocrit 35.3 % (37.0-47.0); Hemoglobin 11.8 g/dL (12.0-16.0); Mean Corp Hgb Conc. 33.4 g/dL (33.0-37.0); Mean Corpuscular Hgb 31.2 pg (27.0-31.0); Mean Corpuscular Volume 93.4 fL (81.0-99.0); Mean Platelet Volume 10.7 fL (7.4-10.4); Nucleated Red Blood Cells % 0 %; Platelet Count 164 10^3/uL (130-400); Red Blood Cell Count 3.78 10^6/uL (4.20-5.40); Red Cell Dist. Width 14.3 % (11.5-14.5); White Blood Cell Count 7.3 10^3/uL (4.8-10.8)
[2024-12-22 13:13] LABS: INR 1.31; PT 16.8 Sec (11.4-14.6)
[2024-12-22 13:14] LABS: APTT 34.2 Sec (23.4-35.0); Urine Albumin Negative (Neg - Trace); Urine Bilirubin Negative (Negative); Urine Character Clear (Clear); Urine Color Yellow; Urine Glucose Negative (Negative); Urine Ketone Negative (Negative); Urine Leukocyte Negative (Negative); Urine Nitrite Negative (Negative); Urine Occult Blood Negative (Negative); Urine Specific Gravity 1.015 (<1.030); Urine Urobilinogen Negative (Neg - 1+)
[2024-12-22 13:21] LABS: ALT (SGPT) 41 U/L (0-35); AST (SGOT) 36 U/L (14-36); Albumin 4.3 g/dl (3.5-5.0); Alkaline Phosphatase 72 U/L (38-126); Blood Urea Nitrogen 44 mg/dl (7-17); Calcium 10.5 mg/dl (8.4-10.2); Carbon Dioxide 24 mmol/L (22-30); Chloride 104 mmol/L (98-107); Direct Bilirubin 0.1 mg/dl (0.0-0.4); Glucose 93 mg/dl (70-99); Potassium 4.6 mmol/L (3.5-5.1); Sodium 137 mmol/L (135-145); Total Bilirubin 0.7 mg/dl (0.2-1.3); Total Protein 6.8 g/dl (6.3-8.2); eGFR 41.31
[2024-12-22 13:28] LABS: NT-proBNP 238 pg/ml
--- NOTE | 2024-12-22 14:00 | CM ---
Met with and Mrs. Mueller in [facility]. She states prior to admission she resides with her spouse in a three story home with thirteen steps to enter. She states she has to go up a full flight of steps to get to her bedroom/full bathroom. She
states she has a powder room in the basement. She states prior to admission she is independent with ambulation and adls. She states she does use a walker when ambulating long distances in the community. She states she has a walker and CPAP
Machine at home. She states she has a prescription plan with [facility] and uses mail order and [facility] when needed. She states he spouse will be home to assist in her care if needed when she goes home. The discharge plan is to return home
with her spouse and a home visit by the Transitional Care Nurse when medically stable.
We reviewed pre-op and post-op routines. We reviewed the shower instructions. She has the soap, written instructions and the TAVR Educational Booklet. We also reviewed restrictions including lifting and driving restrictions. We discussed a home
visit by the Transitional Care Nurse. She is agreeable to a home visit. The plan is for Balloon Valvulopasty and possible TAVR on December.
--- NOTE | 2024-12-22 14:01 | HPS.HSE ---
Family Physician
-
Family Physician: Jean Claude Alonso
Cardiology: Eladio Young
Chief Complaint
-
MUHAMMAD
Pre-procedure History and Physical
History of Present Illness
The patient is a 79-year-old female with a history of severe aortic stenosis treated with TAVR are 06/17/2024, no significant CAD at cath 05/07/2024, paroxysmal atrial fibrillation treated with PVI 2020, repeat PVI/Linq implantation 2021, recurrent
atrial fibrillation requiring multiple cardioversions/amiodarone, hypertension, hyperlipidemia, gastroesophageal reflux, spinal stenosis, and right total knee replacement 2020. She saw Dr. Young for follow-up and reported a change in her status
over the past month or so. She completed cardiac rehab, without events. She tells me she did well with rehab. Unfortunately, over the past several weeks or so she has noted a change in her status. She has been experiencing episodes of wooziness and
a draining sensation from her head. These episodes are happening multiple times per week. The episodes last about 3 to 5 seconds, gradually resolving over about a minute. These episodes can be brought on by a change in position. On a few occasions
she has had episodes seated. There has been no near-syncope or syncope. There has been no associated chest pain or palpitations. These episodes do not occur when she is supine.��In addition, the patient claims that over the past several weeks she
has been experiencing increased shortness of breath on the steps. She insists this was not a symptom that she had following TAVR are for the first 2 months. She actually states post TAVR she felt better but not great. There is no associated chest
pain,palpitations, PND or orthopnea. She does have bilateral lower extremity edema that is better in the morning after her legs are elevated all night.
Mrs. Mueller had a follow up echocardiogram on 11/24/2024 that showed change in AV MG from 13 in June to 20mmHg. Given her new symptoms a CT TAVR was ordered. Her studies were reviewed by the heart team. The valve appears to be underexpanded so
the plan is to perform BAV and if needed place a new valve. Explained the procedure to the patient and her . Allowed for and answered questions.
Medical History
Past Medical History
Past Medical History: Reports Arrhythmia (A-fib(Eliquis)), GERD, HTN, Hypercholesterolemia, Valvular Disease (Aortic stenosis, mild to moderate MR, mild TR), Psychiatric (Anxiety/depression) and Other (KRISHNA-CPAP, Spinal stenosis, constipation,
NEWTOK(hearing aids))
Past Surgical History: Reports Cardiac (TAVR 05/2024, Cardiac ablation 05/2021, cardioversions), Orthopedic (Right TKR) and Other
Social History
Tobacco: Non-smoker
Alcohol: Occasional
Drug: None
Personal:
Living: With Family
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
Family History
Family History: Not pertinent
Allergies / Home Medications
Allergies reflects when Allergies were last updated in [facility].
Home Medications with original date entered in [facility]
Allergy/Medication List:
Allergies:
Diltiazem- anaphylaxis
Tramadol - N/V
Medications:
Review of Systems
-
History Source: Patient
Constitutional: Denies Fever, Weight Gain or Fatigue
EENT: Reports No Symptoms
Respiratory: Reports Other (MUHAMMAD); Denies Cough or Trouble Breathing
Cardiac: Reports Palpitations (occasional); Denies Chest Pain or Syncope
Abdomen/GI: Reports No Symptoms; Denies Abdominal Pain, Nausea, Vomiting or Diarrhea
: Reports No Symptoms; Denies Dysuria, Frequency, Difficulty Voiding or Bleeding
Musculoskeletal: Reports No Symptoms and Edema (bilateral LE, better after elevation)
Skin: Reports No Symptoms
Neurological: Reports Dizzy (with position changes, no syncope, chronic problem) and Headache (tension)
Endocrine: Reports No Symptoms
Hematologic/Lymphatic: Reports No Symptoms
Psych: Reports Anxiety
Physical Exam
Physical Exam
General: Well Developed, Well Nourished, No Apparent Distress and Comfortable
HEENT: NormoCephalic, Atraumatic and PERRLA
Respiratory: Clear and Non Labored Respirations; No Wheezes, Rales or Rhonchi
Cardiac: S1/S2, Regular Rhythm, Murmur (Grade II/ systolic murmur) and Peripheral Edema (bilateral LE, Left >Right, +1 pitting)
Breast: Deferred by me
GI: Soft, Non Tender, Non Distended and Normal Bowel Sounds
Rectal: Deferred by Provider
Genito-urinary: Deferred by me
Musculoskeletal: Edema, Left Lower Extremity and Edema, Right Lower Extremity
Skin: Warm and Dry
Neuro: AO x 3, No Motor Deficits and Nonfocal/grossly intact
Psych: Anxious
Laboratory Results
-
12/22/24 12:29
12/22/24 12:
Laboratory Results
PT 16.8 Sec (11.4-14.6) H 12/22/24 12:
INR 1.31 12/22/24 12:
APTT 34.2 Sec (23.4-35.0) 12/22/24 12:
Total Bilirubin 0.7 mg/dl (0.2-1.3) 12/22/24 12:
AST 36 U/L (14-36) 12/22/24 12:
ALT 41 U/L (0-35) H 12/22/24 12:
Alkaline Phosphatase 72 U/L (38-126) 12/22/24 12:29
Data Reviewed
-
Diagnostic Radiology: Report Reviewed by me
CT Scan: Report Reviewed by me and Discussed with Physician
Medical Tests (Nuc Med, Echo, EKG etc): Report Reviewed by me
Lab Data: Labs Reviewed by me
Old Records: Reviewed (cardiology records, previous TAVR admission)
Impression/Plan
-
IMPRESSION:
Increased mean gradient of bioprosthetic aortic valve with new onset MUHAMMAD. Distortion of valve noted on CT scan.
PLAN:
-Admit 12/30/2024 with plan for BAV, possible placement of new TAVR valve
-Will hold eliquis, last dose 12/27/2024 and begin aspirin 324mg on 12/28, 81mg 12/29 and 12/30
-POD #1/#30 echocardiogram
-Cardiac rehab consult
-Resume Eliquis post procedure
[2024-12-22 14:18] LABS: Glycohemoglobin (HgbA1c) 5.5 % (4.0-5.6)
[2024-12-30] VITALS (38 sets, daily range): BP systolic 100–157; BP diastolic 55–88; BMI 35.6
--- NOTE | 2024-12-30 06:18 | PTCARENOTE ---
Pt arrived for TAVR procedure. pt prepped and clipped. CHG wipes used. new gown provided. IV placed. all admission questions answered. med rec completed. Consent signed by pt and Dr Strange. pt awaiting wetlands conservation laborer. call carlisle within reach.
[2024-12-30] MEDS: ANCEF 10 IV ×2 (07:15→07:43)
--- NOTE | 2024-12-30 08:17 | CM ---
Reviewed chart. Mrs. Mueller is in the operating room today. Prior to admission she resides with her spouse in a three story home with thirteen steps to enter. She has a full flight of steps to get to bedroom/full bathroom. She has a powder room on
the first floor. Prior to admission she was independent with ambulation and adls. She does uses a walker when ambulating long distances in the community. She has a walker and CPAP Machine at home. She has a prescription plan with [facility] and uses
mail order and [facility] when needed. Her spouse will be home to assist in her care if needed when she goes home. Medical work-up in progress. The discharge plan is to return home with her spouse and a home visit by the Transitional Care
Nurse when medically stable.
[2024-12-30 08:26] LABS: ACT-LR - POC 253 Seconds (116-155)
[2024-12-30 08:39] LABS: ACT-LR - POC 274 Seconds (116-155)
[2024-12-30 08:57] LABS: ACT-LR - POC 319 Seconds (116-155)
[2024-12-30 09:23] LABS: ACT-LR - POC 311 Seconds (116-155)
--- NOTE | 2024-12-30 09:36 | W.IMMPOSTOP ---
Surgical Immed Post Op Note
-
[id number]
STRUCTURAL HEART PROCEDURE NOTE: BAV s/p prior TAVR
Preoperative Dx:
Hx of severe s/p TAVR w/ 26mm EVOLUT Fx in MAY 2024 w/ new, symptomatic increase in valve gradients & imaging w/ infolding at valve inlet; mean gradient up to 20mmHg
Osek-dm-dhfpskhx MR w/ kucj-hp-hauyhszg MAC
Bradycardia
Hx of AF s/p ablation in 2020, cardioversions
KRISHNA - CPAP
HTN/HLD
GERD
Spinal stenosis
Macular degeneration
Anxiety/depression
Postoperative Dx:
Same
Procedures:
1) L RA access w/ tactile, U/S, and fluoroscopic guidance, micropuncture technique, 6Fr sheath placement
2) L CFV access w/ seldinger technique and U/S guidance, long 6Fr sheath placement
3) L WIRE MESH GATE ASSEMBLER access w/ tactile, U/S, and fluoroscopic guidance, seldinger technique, long 6Fr sheath placement
4) R WIRE MESH GATE ASSEMBLER access w/ tactile, U/S, and fluroscopic guidance, micropuncture technique, limited angiography, 6Fr/8F dilator placement, 8Fr sheath placement, perclose suture placement x 2
5) Placement of 14Fr Hernadez E-sheath (systemic heparinization)
6) Placement of pigtail catheter in ascending aorta via L RA access
7) Placement of temporary RV pacing wire via L CFV access w/ threshold testing
8) L coronary access for protection via L WIRE MESH GATE ASSEMBLER access (guide/undeployed stent)
9) Wire purchase across prior TAVR valve (table-J wire) w/ placement of pigtail catheter in LV apex
10) Hemodynamic assessments of TAVR valve (AV gradients measured on simultaneous measurements & on pull-back; mean gradient ~20mmHg)
11) Pre-BAV TTE assessment w/ mean gradient ~20mmHg
12) Placement of extra-stiff wire in LV apex
13) BAV x 2 w/ 22mm TRUE BALLOON good visual expansion of TAVR valve inlet
14) Completion aortography
15) Completion TTE assessment w/ mean gradient decrease to 10mmHg
16) Replacement of pigtail catheter in LV apex w/ repeat measurements of AV gradients w/ mean gradient decrease to ~10mmHg
17) Removal of L coronary protection w/ limited completion coronary angiography
18) Transition of pigtail catheter from L RA to L WIRE MESH GATE ASSEMBLER access
19) Removal of Hernadez E-sheath w/ R WIRE MESH GATE ASSEMBLER mgmt w/ perclose sutures x 2; manual pressure
20) Completion R ileofemoral angiography
21) Pacing wire secured in-situ secondary to ongoing sinus bradycardia in 40s
22) Limited L WIRE MESH GATE ASSEMBLER angiography w/ subsequent removal of L WIRE MESH GATE ASSEMBLER long 6Fr sheath w/ mgmt w/ 6Fr angioseal; manual pressure
23) Removal of L RA 6Fr sheath w/ mgmt w/ radial band placement
Charger:
Dr. Russ Casillas
Cardiac Surgeon:
Dr. Anderson Strange
Anesthesia:
MAC w/ local to B/L groins and L wrist
Complications:
None
Cath Data:
Start: 0747hrs, Deploy: N/A, End: 0931hrs
FT: 15.8min, mGy: 1000.35, DAP: 80.3115, Contrast: 90mL
Post-TTE: no AI/PVL, mean gradient 10mmHg
Implants:
Perclose x 2 to R WIRE MESH GATE ASSEMBLER
6Fr angioseal x 1 to L WIRE MESH GATE ASSEMBLER
Condition:
Stable/guarded to recovery
Temporary pacer in-situ; pt. w/ sinus bradycardia in 40s currently
--- NOTE | 2024-12-30 12:05 | PTCARENOTE ---
1135 Rec'd Pt s/p TAVR. She is sleeping but awakens easily and answers questions appropriately. She denies pain. Bilat femoral dsgs D+I L radial band in place, site clean and dry. L femoral venous pacer wire in place. Pt's HR 45, SB. BP 124/55. O2
sat 95% on O2 at 2L/min. Dyan Rock APPOINTMENT SCHEDULER came to see Pt.
--- NOTE | 2024-12-30 15:08 | PTCARENOTE ---
Zunilda ONTIVEROS & Mendoza Noble RN at bedside for LFV sheath pull. ACT 142
[2024-12-30 15:09] LABS: ACT-LR - POC 142 Seconds (116-155)
[2024-12-30] MEDS: REFRESH EYE DROPS (PF) 1 DROPS OPHTH ×3 (15:43→22:47)
[2024-12-30] MEDS: MAALOX 30 ML PO ×2 (15:46→19:54)
--- NOTE | 2024-12-30 16:04 | PTCARENOTE ---
Pt HR remaining in the 50's this afternoon, Dr Casillas removed venous pacer wire. laborer RN, Davon, removed venous sheath, with hemostasis at 1521. ACT prior to removal =142. L femoral dsg remains D+I.
--- NOTE | 2024-12-30 16:46 | PTCARENOTE ---
Pt c/o reflux/ indigestion. Med with Maalox 30ml PO, as ordered, with relief noted.
--- NOTE | 2024-12-30 16:56 | ITS.CL.PN ---
Addendum entered and electronically signed by Russ Casillas MD 12/30/24 17:49:
Limited coronary angiography performed to facilitate placement of coronary protection equipment demonstrated patent left dominant system with minimal coronary artery disease, unchanged from prior angiograph. Closing angiography after coronary
protection equipment was removed demonstrated no evidence of vessel injury.
Original Note:
Inner Tube Cutter - Procedure Note
Procedure
Procedure Note:
BALLOON AORTIC VALVULOPLASTY
Date of Procedure: 12/30/2024
Referring: Dr. Eladio Young MD
Indication: bioprosthetic valve failure due to TAVR prosthesis underexpansion and elevated gradient with symptomatic bioprosthetic aortic valve stenosis
Operators: Russ Casillas MD, PhD (interventional cardiology); Anderson Strange MD (CT surgery)
Anesthesia: conscious sedation provided by the anesthesia staff
PROCEDURE: balloon aortic valvuloplasty of a previously placed 26 mm Medtronic Evolut Fx TAVR valve with a 22 mm True balloon
ACCESS:
1. 6F left femoral vein (closure: manual hemostasis)
2. 6F left common femoral artery (closure: Angioseal)
3. 14F right common femoral artery (closure: Perclose x2)
4. 6F left radial artery
ULTRASOUND GUIDED VASCULAR ACCESS (left femoral vein): Ultrasound was utilized for vascular access. The vessel was visualized under ultrasound and noted to be patent. An image of the vessel was stored permanently in the patient's medical record.
Under direct ultrasound guidance, vascular access was obtained using a modified Seldinger technique and a 6 Cambodian sheath was placed.
ULTRASOUND GUIDED VASCULAR ACCESS (left common femoral artery): Ultrasound was utilized for vascular access. The vessel was visualized under ultrasound and noted to be patent. An image of the vessel was stored permanently in the patient's medical
record. Under direct ultrasound guidance, vascular access was obtained using a modified Seldinger technique and a 6 Cambodian sheath was placed.
ULTRASOUND GUIDED VASCULAR ACCESS (right common femoral artery): Ultrasound was utilized for vascular access. The vessel was visualized under ultrasound and noted to be patent. An image of the vessel was stored permanently in the patient's medical
record. Under direct ultrasound guidance, vascular access was obtained using a modified Seldinger technique and a 8 Cambodian sheath was placed.
ULTRASOUND GUIDED VASCULAR ACCESS (left radial artery): Ultrasound was utilized for vascular access. The vessel was visualized under ultrasound and noted to be patent. An image of the vessel was stored permanently in the patient's medical record.
Under direct ultrasound guidance, vascular access was obtained using a modified Seldinger technique and a 6 Cambodian sheath was placed.
HEMODYNAMIC DATA
LV 137/20 (EDP 30) mmHg
PROCEDURE NARRATIVE:
After heart team discussion decision was made to proceed with balloon aortic valvuloplasty of the previously placed Evolut TAVR valve with plan for bailout valve in valve TAVR with a EBONY S20 if BAV failed. Given high risk for coronary obstruction
with Larry TAVR based on CT analysis, upfront coronary protection of the left main was planned in case of need for Larry TAVR.
The patient was prepped and draped in standard sterile fashion. Conscious sedation was provided by the anesthesia staff. 6F left radial artery access was obtained under ultrasound guidance. 6F left femoral vein and left common femoral artery access
was obtained with ultrasound guidance using micropuncture technique with verification of appropriate arteriotomy location via hand injection angiography. A temporary venous pacing wire was advanced via the left femoral vein to the right ventricle
under fluoroscopic guidance with appropriate capture verified. A 5F pigtail catheter was advanced via the left radial artery and seated in the right coronary cusp. Angiography was performed to verify the co-planar angle.
8F right common femoral artery access was obtained with ultrasound guidance using micropuncture technique with verification of appropriate arteriotomy location via hand injection angiography. The arteriotomy was preclosed with two Perclose sutures
followed by replacement of the 8F sheath. Using an AL1 catheter, an Amplatz Superstiff wire was placed in the descending thoracic aorta. The 8F sheath was removed and the 14F Hernadez E-sheath was inserted over the Superstiff wire and into the
descending aorta. Heparin 7000 units was given.
Far lateral fluoroscopy was performed which demonstrated underexpansion of the Evolut TAVR valve in the AP direction.
Via the left common femoral artery sheath a 6 Cambodian JL3.5 guide catheter was used to cannulate the left main through the frame of the Evolut TAVR valve. A run-through wire was placed in the distal LAD and a GuideLiner and 4.[address] [place]
drug-eluting stent placed in the mid LAD to allow for chimney stenting should valve in valve TAVR be necessary.
The AL1 catheter was re-advanced through the E-sheath to the level of the ascending aorta. The Superstiff wire was exchanged for a soft tipped straight wire which was used to cross the aortic valve and deposit the AL1 in the LV apex. A J-wire was
used to exchange the AL1 for a pigtail catheter in the LV and LVEDP was measured. Valve gradient was also measured with simultaneous pressure obtained from a pigtail in the LV and a pigtail in the aortic root, demonstrating a mean gradient of 20
mmHg. Transthoracic echocardiography was performed at the same time and demonstrated a mean gradient of 20 mmHg.
An Amplatz Extrastiff wire with curved proximal end was advanced through the LV pigtail catheter and seated in the LV apex. ACT was checked and confirmed to be >250 seconds.
A 22 mm True valvuloplasty balloon was advanced over the Extrastiff wire and into the aortic annulus. Valvuloplasty was performed under rapid pacing with good balloon expansion. The first inflation of the valvuloplasty balloon resulted in
ventricular watermelon seeding and inflation was aborted. A second inflation was performed to full volume with stable positioning. The balloon was removed from the valve and the wire recentered.
The patient was resuscitated by anesthesia with recovery of adequate blood pressure. Telemetry demonstrated sinus rhythm with left bundle branch block and a single short run of heart block. Aortography demonstrated good valve positioning, adequate
coronary filling, and no aortic valve insufficiency. Echocardiography confirmed no aortic insufficiency, and circular appearance of the inflow of the valve. Mean valve gradient was 10 mmHg. The balloon was removed. Repeat far lateral fluoroscopy
was performed and demonstrated improved expansion of the inflow of the Evolut TAVR valve.
The Hernadez E sheath was removed, and hemostasis obtained with the two Perclose sutures. Protamine 30 units was given. Aortoiliac angiography demonstrated no evidence of iliofemoral dissection/perforation and good runoff below the common femoral
artery bilaterally. The pacemaker was secured in place given brief heart block with plan to remove if rhythm remained stable post procedurally. The left femoral artery sheath was removed using a 6F Angioseal. The left femoral venous sheath was
removed with manual pressure. The left radial artery access was removed with TR band placed.
RADIATION: dose 1088 mGy; DAP 86.2 Gy*cm2; fluoroscopy time 16.3 min
CONCLUSIONS
1. successful balloon aortic valvuloplasty via right transfemoral approach with a 22 mm True balloon with no acute complications and improvement in mean gradient from 20 mmHg to 10 mmHg
2. acute on chronic heart failure with elevated filling pressures (LVEDP = 30 mmHg)
Copy to: Eladio Young MD (exchange teller); Jean Claude Alonso DO (PCP)
Signed: Russ Casillas MD, PhD
[2024-12-30] MEDS: ANCEF 5 IV (16:58)
[2024-12-30] MEDS: CRESTOR 20 MG PO (16:58)
[2024-12-30] MEDS: ZETIA 10 MG PO (16:59)
--- NOTE | 2024-12-30 18:41 | PTCARENOTE ---
Pt c/o L eye discomfort, tearing. She feels like there is something in her eye. Dyan came to see Pt. Nothing noted in her eye. artificial tears ordered and given.
[2024-12-30] MEDS: PROTONIX 40 MG PO (19:43)
[2024-12-30] MEDS: THERAGRAN 1 TABLET PO (19:43)
--- NOTE | 2024-12-30 21:25 | PTCARENOTE ---
Rec'd pt at change of shift. Pt AAO*#, VSS, and SR on TELE monitor. Pt reports indigestion and PRN Maalox given as ordered. Pt denies any other active pain or discomfort. Bilateral groin sites CDI and L radial site CDI. Pt aware of limb
restrictions. Pt resting with call carlisle in reach. Plan of care ongoing. See MAR and flowchart for full pt care and assessment.
--- NOTE | 2024-12-30 22:15 | PTCARENOTE ---
TELE monitor alarmed ptin SVT vs Sinus tach. Pt HR in the 140-160's. Pt denied any palpitations or chest pain at this time. AVTAR Khan aware and femoral/radial sites CDI. Pt converted back to SR with HR in the 60's spontaneously. Plan of care
ongoing, cardiac monitoring continues.
[2024-12-30] MEDS: TYLENOL 1000 MG PO (22:41)
--- NOTE | 2024-12-30 23:10 | PTCARENOTE ---
Pt complained of sever headache rating pain at a 10/10. CT AVTAR Khan notified and aware. Rec'd order for STAT Ct of the head without contrast. Rec'd order for 2mg morphine IV. Neuro assessment unchanged. Ct of head complete and pt reports
relief after morphine given.
--- NOTE | 2024-12-30 23:32 | W.PN.UPDATE ---
Update Note
Progress Note Update
-pt called @ 10:30 pm saying that she has 10/10 b/l headache at the top of her head, radiating to her forehead. It feels 'like my head is going to blow off.' She is A&O x4, neurologically intact, no focal deficits. Vision and speech are intact, no
asymmetry, no tongue deviation, strength is 5/5 upper and lower extremities b/l. SBP 120s-140s, hr 60s. Pt had 3 min of rapid a-fib at 10:04 pm while walking from chair to bed and is back in nsr. She didn't feel palpitations.
-Pt states having hx of migraines many years ago with visual aura, which were related to her periods. She does not have any aura now. She also had similar headaches in the past when her BP was 190s, which prompted her to see a physician and start BP
meds. Her BP currently 146/78, nsr 63, pOx 93 on RA and 95% on 2L.
-pt refused narcotics initially and got 1000 mg po Tylenol with no significant relief. She agreed to try iv Morphine. LING improved to 5-6/10, no nausea. BP 128/88, hr 63.
-discussed with Dr. Strange. Will check Head CT without contrast and continue to monitor closely.
[2024-12-30] MEDS: MORPHINE SULFATE 2 MG IV (23:43)
[2024-12-31] VITALS (21 sets, daily range): BP systolic 112–157; BP diastolic 55–102; PULSE 90; O2SAT 94–96; BMI 35.8
[2024-12-31 04:40] LABS: Hemoglobin 10.9 g/dL (12.0-16.0); Mean Corpuscular Hgb 31.4 pg (27.0-31.0); Mean Corpuscular Volume 95.1 fL (81.0-99.0); Mean Platelet Volume 10.4 fL (7.4-10.4); Platelet Count 143 10^3/uL (130-400); Red Blood Cell Count 3.47 10^6/uL (4.20-5.40); Red Cell Dist. Width 14.6 % (11.5-14.5); White Blood Cell Count 8.3 10^3/uL (4.8-10.8)
[2024-12-31 04:57] LABS: Blood Urea Nitrogen 21 mg/dl (7-17); Calcium 9.7 mg/dl (8.4-10.2); Carbon Dioxide 24 mmol/L (22-30); Chloride 104 mmol/L (98-107); Estimated Creatinine Clearance 44 ml/min; Glucose 100 mg/dl (70-99); Potassium 3.7 mmol/L (3.5-5.1); Sodium 137 mmol/L (135-145)
--- NOTE | 2024-12-31 06:35 | W.PN.CT ---
Today's Communication / Plan
-
-pod #1
-Toprol, Amio, and Eliquis are held d/t bradycardia 40s postop. No significant jasbir or pauses overnight, in nsr 60s
-c/o persistent severe headache last night. No focal neuro deficits. Head CT was unremarkable. LING resolved with iv Morphine
-had about 3 min of rapid a-fib last night while walking in the room - consider restarting Amio +/- Toprol and Eliquis
-Echo today
-encourage IS, OOB, ambulate
Assessment / Plan
-
- s/p BAV x 2 w/ 22mm TRUE BALLOON good visual expansion of TAVR valve inlet on 12/30/24, pod #1
- Pre-BAV TTE assessment w/ mean gradient ~20mmHg
- Post-TTE: no AI/PVL, mean gradient 10mmHg
- Sinus jasbir 40s post-procedure - improved, temporary pacing wire was removed 12/30/24
- Hx of severe s/p TAVR 05/2024 w/ 26mm EVOLUT Fx in MAY 2024 w/ new, symptomatic increase in valve gradients & imaging w/ infolding at valve inlet; mean gradient up to 20mmHg
- Zahp-kl-opihhray MR w/ udjr-hg-wqdijupj MAC
- Bradycardia
- Hx of paroxysmal a-fib- s/p ablation in 2020, cardioversions- on Eliquis and Amio at home
- KRISHNA - CPAP
- HTN/HLD
- GERD
- Spinal stenosis
- Macular degeneration
- Anxiety/depression
- Afib with RVR 140s-160 around 10 pm while walking from chair to bed, asymptomatic, converted spontaneously to nsr after 3 min
- C/o severe LING 12/30/24, no focal neuro deficits -impoved with iv Morphine. Head CT was unremarkable
Discussed patient care with: Nursing and Care Team
Subjective
-
Date of Service: December 31, 2024
Objective Data
-
PT 16.8 Sec (11.4-14.6) H 12/22/24 12:29
INR 1.31 12/22/24 12:29
APTT 34.2 Sec (23.4-35.0) 12/22/24 12:29
Vital Signs
Vital Signs
Temp Pulse Resp BP Pulse Ox
98.9 F 78 18 157/61 93
12/30/24 22:12 12/31/24 00:34 12/30/24 22:12 12/31/24 00:34 12/30/24 22:12
CT Intake/Output/Weight
12/30/24 12/30/24 12/31/24
06:59 18:59 06:59
Intake Total 680 / 680
Output Total 400 / 400
Balance -400 / 280 680 / 280
SaO2: 93
Physical Exam
-
General: Awake and AOx3
Cardiovascular: Regular rate & rhythm, No Murmurs and No Rub
Respiratory: Clear
Incision: Other (groins are cdi, soft, nontender, nondistended, no hematoma b/l)
Extremities: Edema +1 (chronic skin changes, likely venostasis b/l)
Abdomen: soft, nontender, nondistended, + bowel sounds
Data Reviewed
-
Lab Results: Results Reviewed
Medications: Active Meds Reviewed
Chest X-Ray: Report Reviewed and Image Reviewed
ECG: Report Reviewed and Image Reviewed
--- NOTE | 2024-12-31 08:17 | W.PN.ANS.POP ---
Anesthesia Post Operative
- Anesthesia Post Op Note
Vital Signs Stable-See Nursing Note: Yes
Airway Patent: Yes
Adequate Pain Control: Yes
Change in Mental Status: No
Current Postoperative Nausea & Vomiting: No
Anesthesia Complications: No
General Anesthetic Recall: No
Unplanned Admission: No
Post Op Hydration Adequate: Yes
--- NOTE | 2024-12-31 08:45 | W.DCSUMMARY ---
Discharge Summary
Discharge Data
Date of Admission: 12/30/24
Date of Discharge: 12/31/24
-
Pending Results: No
Hospital Course
Primary care physician: Jean Claude Alonso
Outpatient manager primary: Eladio Young
Inpatient consultants: [facility]
Procedures:
1. balloon valvuloplasty
Primary Diagnosis:
1. prosthetic aortic stenosis
Secondary Diagnoses:
1. Bradycardia.
2. History of atrial fibrillation status post ablation in 2020, on Eliquis
3. Obstructive sleep apnea - CPAP
4. Hypertension
5. Hyperlipidemia
6. Gastroesophageal reflux disease
7. Spinal stenosis.
8. Macular degeneration w/injections
9. Anxiety/depression
10. History of TAVR 2023
HPI: 79-year-old female with history of TAVR in May 2024, presents for elective balloon valvuloplasty and possible TAVR on 12/30/24 due to bioprosthetic valve failure due to TAVR prosthesis underexpansion and elevated gradient with symptomatic
bioprosthetic aortic valve stenosis
Hospital course: Patient went a balloon valvuloplasty of her prosthetic aortic valve by Drs. Anderson Strange and Kenji Sanchez. Echocardiogram postprocedure reported AV gradients of 21/11 mmHg and trace AI. Patient was bradycardic postprocedure with
heart rates in the high 30s to low 40s. A left femoral transvenous pacer was placed and set to VVI 35 bpm. Patient required Levophed short-term in the PACU which was discontinued prior to transfer to IVU. Beta-armando and amiodarone were held.
Transvenous pacer and sheath were removed by Dr. Sanchez late in the afternoon. Patient maintained bradycardia to sinus rhythm with rates in the high 50s to mid 60s overnight. Patient did complain of a global headache which improved with 1 dose of
morphine. Patient developed atrial fibrillation with rates in the low 100s. A heart monitor was ordered for discharge by cardiology. On postoperative day #1, patient reports headache had cleared. Groin sites remained stable without hematoma or
bruit. Amiodarone, beta-armando, and Eliquis were resumed. Predischarge echocardiogram reported an EF of 65 to 70% with AV gradients of 22/9 mmHg. Hemoglobin stable at 10.9 with creatinine 1.0 (unchanged). Patient is stable for discharge home.
Home medication changes:
Discharge Plan
-
Patient Disposition: Home (Routine Discharge)
Discharge Diagnosis/Procedures: Balloon Valvuloplasty
Condition: Good
Diet: Low Cholesterol and 2 Gram Sodium
Activity: As tolerated
Driving Restrictions: No driving for 1 week
Bathing Restrictions: OK to Shower
Others Tests: Follow up echocardiogram is scheduled in Dr. Young's office on 01/31/2025 at 10:40am.
Other Services: Cardiac Rehab
Wound Care: Please do not apply lotions, creams or powders to groin areas. Please monitor for increased pain, swelling, redness or drainage. Please call your doctor if any occur.
Specialty Instructions: Weigh Daily- Call MD for wt gain/loss 3 lbs overnight/5 lbs in 1 week
Referrals:
CT Transitional Care Nurse [Outside] - in one to two days
(
The Cardiothoracic Transitional Care Nurse will call you to set up a visit in 1-2 days.)
Jean Claude Alonso, DO [Family Provider] - in four to six weeks (Please make an appoinment in four to six weeks. )
Eladio Young MD [Active] - 02/10/25 10:00 am
Prescriptions:
Continued
potassium chloride 10 mEq Capsule, Extended Release
10 meq PO DAILY
amiodarone 200 mg Tablet
200 mg PO DAILY
amlodipine 2.5 mg Tablet
2.5 mg PO DAILY
chlorthalidone 25 mg Tablet
12.5 mg PO DAILY
coenzyme Q10 50 mg Capsule
50 mg PO DAILY
flaxseed oil 1,000 mg Capsule
1,000 mg PO Q48H
Patient Comments:
ascorbic acid (vitamin C) [Vitamin C] 500 mg Capsule, Extended Release
500 mg PO DAILY
calcium carbonate-vitamin D2 600 mg calcium- 200 unit Tablet
1 tab PO DAILY
ezetimibe 10 mg Tablet
10 mg PO NOON
rosuvastatin 20 mg Tablet
20 mg PO QPM
duloxetine 60 mg Capsule,Delayed Release(Dr/Ec)
60 mg PO DAILY
cholecalciferol (vitamin D3) 25 mcg (1,000 unit) Tablet
25 mcg PO HS
alpha lipoic acid 100 mg Capsule
100 mg PO DAILY
oregano oil 1,500 mg Capsule
1,500 mg PO NOON
PreserVision AREDS 2,148 mcg-113 mg-45 mg-17.4mg Tablet
1 tab PO BID
turmeric root extract 500 mg Capsule
500 mg PO NOON
Centrum Silver 400-250 mcg Tablet,Chewable
1 tab PO BID
apixaban 5 mg Tablet
5 mg PO Q12H
mecobalamin (vitamin B12) [B12 Active] 1,000 mcg Tablet,Chewable
500 mcg PO NOON
pantoprazole 40 mg Tablet,Delayed Release (Dr/Ec)
40 mg PO BID Qty: 30 0RF
furosemide [Lasix] 20 mg tablet
20 mg PO DAILY Qty: 20 0RF
Patient Comments:
Does not take
metoprolol succinate 50 mg Tablet Extended Release 24 Hr
50 mg PO BID Qty: 0 0RF
olmesartan 40 mg Tablet
40 mg PO DAILY Qty: 0 0RF
omega 8-qnb-upp-fish oil [Fish Oil] 1,000 mg (120 mg-180 mg) Capsule
1 cap PO Q48H Qty: 0 0RF
Discharge Orders:
Discharge Patient (As Directed); Ordered 12/31/24
Ordered By: Dyan Rock
Discharge Date and Time
Print Language: JAPANESE
[2024-12-31] MEDS: BENICAR 40 MG PO (08:49)
[2024-12-31] MEDS: CYMBALTA DELAYED RELEASE 60 MG PO (08:50)
[2024-12-31] MEDS: Hygroton 12.5 MG PO (08:51)
[2024-12-31] MEDS: KCL 10 MEQ PO (08:52)
[2024-12-31] MEDS: LASIX 20 MG PO (08:52)
[2024-12-31] MEDS: PACERONE 200 MG PO (08:53)
[2024-12-31] MEDS: OSCAL 500 + D 500 MG PO (08:53)
[2024-12-31] MEDS: THERAGRAN 1 TABLET PO (08:53)
[2024-12-31] MEDS: TOPROL XL 50 MG PO (08:53)
[2024-12-31] MEDS: PROTONIX 40 MG PO (08:53)
[2024-12-31] MEDS: FLUSH (NSS) 1 FLUSH IV (08:54)
[2024-12-31] MEDS: VITAMIN C 500 MG PO (08:54)
[2024-12-31] MEDS: NORVASC 2.5 MG PO (09:08)
--- NOTE | 2024-12-31 09:33 | CM ---
Reviewed chart. Met with Mrs. Mueller to review discharge plans. She states she is feeling well and maybe able to go home soon. She states she ambulated to the bathroom today. We reviewed a home visit by the Transitional Care Nurse. She is
agreeable to a home visit. She states prior to admission she resides with her spouse in a two story home with a basement. She states if she goes into the house from the garage she does not have any steps to enter. She states she can spend the
most of the day in the finished basement that has a powder room. She states she is planning on going upstairs to her bedroom/full bathroom. Prior to admission she was independent with ambulation and adls. She uses a walker when ambulating long
distances in the community. She has a walker and CPAP Machine at home. She has a prescription plan with [facility] and uses mail order and [facility] when needed. She states her spouse will be home to assist in her care if needed. Medical
work-up in progress. The discharge plan is to return home with her spouse and a home visit by the Transitional Care Nurse when medically stable.
--- NOTE | 2024-12-31 11:21 | PTCARENOTE ---
Received patient this morning resting in bed, bilateral groin sites and left wrist are clean dry and intact. No bleeding or signs of a hematoma noted. Neuro status stable, patient offers no complaints other than she is aware that her BP is elevated
and HR is tachy at times. Patient restarted on amiodarone and toprol PO and doses given with her AM meds. Echo done at the bedside, await plan of care.
--- NOTE | 2024-12-31 13:03 | W.PN.UPDATE ---
Update Note
Progress Note Update
Patient to go home with a rhythm star phototypesetting equipment monitor per Dr. Casillas. Reviewed the monitor with patient and her . Demonstrated how to turn on, apply, report symptoms and charge. Reviewed how to return the device after 14 days. Allowed for
and answered questions.
[2024-12-31] MEDS: ZETIA 10 MG PO (13:45)
--- NOTE | 2024-12-31 14:34 | W.PN.CD ---
Addendum entered and electronically signed by Russ Casillas MD 01/03/25 17:20:
Addendum for CDI:
Based on patient's severely elevated filling pressures at time of TAVR, she meets criteria for diagnosis of acute on chronic diastolic heart failure
Original Note:
Today's Communication / Plan
-
discharge to home with director of cardiac cath lab
Impression / Plan
-
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
Patient had very transient heart block in the OR and then brief LBBB which resolved to sinus rhythm. Had some episodes of Afib w/ RVR (hemodynamically tolerated) overnight in setting of having her amio held. Had a severe headache with HCT negaitve.
Today ambulating and feeling well. Echo gradient today 9 mmHg.
Plan for discharge to home with director of cardiac cath lab given transient LBBB. Will continue prior medications including eliquis/amio for Afib.
Follow up with Dr. Eladio Young MD.
Physical Exam
Vital Signs/Labs
Vital Signs
Temp Pulse Resp BP Pulse Ox
37.0 C 64 20 144/84 94
12/31/24 12:02 12/31/24 11:50 12/31/24 12:02 12/31/24 12:02 12/31/24 12:02
12/30/24 12/31/24 01/01/25
06:59 06:59 06:59
Actual Weight 85.5 kg 85.9 kg
12/31/24 04:10
12/31/24 04:10
PT 16.8 Sec (11.4-14.6) H 12/22/24 12:29
INR 1.31 12/22/24 12:29
APTT 34.2 Sec (23.4-35.0) 12/22/24 12:29
12/22/24
12:29
Gfs-X-Vjqzdzoylqr Pept 238
Physical Exam
Constitutional: No acute distress
Cardiovascular: Rhythm & rate is regular
Respiratory: Respiratory effort normal
Neuro/Psych: AO x 3
Data Reviewed
-
Date of Service: December 31, 2024
Medical Decision Making: Reviewed Test Results
EKG: Tracing Personally Visualized and interpreted
Echo: Tracing Personally Visualized and interpreted
Labs: Labs Reviewed by me
--- NOTE | 2024-12-31 16:32 | PTCARENOTE ---
Reviewed discharge instructions, medications and follow up appointments with the patient and her and they state their understanding. Rhythm star monitor placed on the patient prior to discharge. Patient discharged home with her .
--- NOTE | 2025-01-03 16:09 | PN.CDI ---
CDI
- -
CDI:
Physician Documentation Request
Admit Date: 12/30/24 05:38
Dear Doctor Sonja,
Please review the following and provide your response in the progress notes.
Clinical Indicators:
Pt admitted for a Balloon Valvuloplasty.
12/30 phlebotomy lab assistant report: 'Conclusions: 2. acute on chronic heart failure with elevated filling pressures (LVEDP = 30mmHg)'
12/31 Echo report:
' Left Ventricle
Normal left ventricular size and systolic function. No regional wall motion
abnormalities are seen. LV ejection fraction is 65-70% by Harvey's method of
discs.'
Please provide further specificity regarding the most likely type of CHF you are evaluating, treating or monitoring.
Type
Systolic
Diastolic
Combined Systolic/Diastolic
Other
Use of terms such as suspected, likely, concern for, or probable (associated with a specific diagnosis that is being evaluated, monitored, or treated as if it exists) are acceptable and can be coded in the inpatient setting, when documented at the
time of discharge.
Thank you,
Maggie Meek RN, BSN
CDI Specialist
[employer]
Please use your independent medical judgment in providing your response.
== END 2024-12-31 15:00 | disposition home or self-care (01) | DRG 319 ==
LOC: IVU 05:38
PROVIDERS: Physician Assistant Medical; Student in an Organized Health Care Education/Training Program; ADMITTING PHYSICIAN Thoracic Surgery (Cardiothoracic Vascular Surgery); FAMILY PHYSICIAN Family Medicine
PROC: B4101ZZ Fluoroscopy of Abdominal Aorta using Low Osmolar Contrast (ICD-10-PCS; 2024-12-30)
PROC: B2111ZZ Fluoroscopy of Multiple Coronary Arteries using Low Osmolar Contrast (ICD-10-PCS; 2024-12-30)
PROC: 027F3ZZ Dilation of Aortic Valve, Percutaneous Approach (ICD-10-PCS; 2024-12-30)
PROC: B41G1ZZ Fluoroscopy of Left Lower Extremity Arteries using Low Osmolar Contrast (ICD-10-PCS; 2024-12-30)
DX: T82.02XA Displacement of heart valve prosthesis, initial encounter (principal); I50.33 Acute on chronic diastolic (congestive) heart failure; R06.09 Other forms of dyspnea; I11.0 Hypertensive heart disease with heart failure; G47.33 Obstructive sleep apnea (adult) (pediatric); F41.9 Anxiety disorder, unspecified; I08.0 Rheumatic disorders of both mitral and aortic valves; H35.30 Unspecified macular degeneration; F32.A Depression, unspecified; E78.00 Pure hypercholesterolemia, unspecified; K21.9 Gastro-esophageal reflux disease without esophagitis; I48.0 Paroxysmal atrial fibrillation; H91.90 Unspecified hearing loss, unspecified ear; I44.7 Left bundle-branch block, unspecified; R51.9 Headache, unspecified; Y83.1 Surgical operation with implant of artificial internal device as the cause of abnormal reaction of the patient, or of later complication, without mention of misadventure at the time of the procedure; Y92.9 Unspecified place or not applicable; Z96.651 Presence of right artificial knee joint; Z95.3 Presence of xenogenic heart valve; Z88.5 Allergy status to narcotic agent
CPT/HCPCS: 93308; 36415; 70450; 71045; 71046; 76937; 80048; 80053; 81003; 82248; 83036; 83880; 85025; 85027; 85347; 85610; 85730; 86850; 86900; 86901; 87070; 92986; 93005; 93321; 93325; C1760; C1769; C1887; C1894; Q9967